=== PATIENT | male | born 1955 | race Caucasian/White ===

== ENCOUNTER 2016-03-19 12:55 | Emergency (ER) | payer OTHER ==
[2016-03-19] MEDS ORDERED: HYDROmorphone 1 MG/ML 1 ML SYRINGE IVP STA (13:26)
[2016-03-19] MEDS ORDERED: SODIUM CHLORIDE 0.9% 500 ML IV STA (13:26)
[2016-03-19] MEDS ORDERED: SODIUM CHLORIDE 0.9% 1,000 ML IV STA (13:26)
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
[2016-03-19 14:40] LABS: Appearance,Urine Clear (Clear); Bilirubin,Urine Negative (Negative); Glucose,Urine (UA) 4+ (Negative); Ketones,Urine Negative (Negative); Leukocyte Esterase,Urine Negative (Negative); Nitrite,Urine Negative (Negative); Protein,Urine Negative (Negative); Specific Gravity,Urine 1.029 (1.001-1.035); UA Billing (MACRO vs. MICRO) CHEM; Urobilinogen,Urine <2.0 mg/dL (<2.0)
[2016-03-19 15:11] LABS: Basophils # (A) 0.1 k/uL (0-0.2); Basophils % (A) 1 %; CH 31.3; Eosinophils # (A) 0.1 k/uL (0-0.7); Eosinophils % (A) 2 %; HCT 50.1 % (39.0-53.0); HDW 2.86; Luc # (Auto) 0.08; Luc % (Auto) 1; Lymphocytes # (A) 1.9 k/uL (1.0-4.8); Lymphocytes % (A) 22 %; MCH 29.8 pg (25.0-35.0); MCV 87.5 fL (80.0-100.0); Mean Platelet Volume 7.7; Monocytes # (A) 0.5 k/uL (0-1.0); Monocytes % (A) 6 %; Neutrophils # (A) 5.9 k/uL (1.3-7.7); Neutrophils % (A) 69 %; RBC 5.72 m/uL (4.30-5.90); RDW 12.9 % (11.5-15.5); WBC 8.5 k/uL (3.8-10.6); WBC (Perox) 8.23
[2016-03-19 15:20] LABS: ALT 55 U/L (21-72); AST 24 U/L (17-59); Alkaline Phosphatase 73 U/L (38-126); Amylase 32 U/L (30-110); Anion Gap 12 mmol/L; Blood Urea Nitrogen 12 mg/dL (9-20); Carbon Dioxide 26 mmol/L (22-30); Chloride 102 mmol/L (98-107); Glucose 301 mg/dL (74-99); Non-African American GFR(MDRD) >60 (>60 ml/min/1.73 sqM); Potassium 4.4 mmol/L (3.5-5.1); Sodium 140 mmol/L (137-145); Total Protein 7.5 g/dL (6.3-8.2)
--- NOTE | 2016-03-19 15:33 | XR ---
EXAMINATION TYPE: XR abdomen 2V DATE OF EXAM: 03/19/2016 3:14 PM COMPARISON: 08/18/2015 HISTORY: Abdominal pain TECHNIQUE: 2 views FINDINGS: Bowel gas pattern is normal. There is no sign of intestinal obstruction or pneumoperitoneum . Fecal pattern is normal. There are clips from cholecystectomy. There are no pathologic calcificatio ns over the kidneys. Lung bases are clear. There is no evidence of a mass. IMPRESSION: Nonacute abdomen.
[2016-03-19 15:51] LABS: Hepatitis B Surface Ag Index 0.05
[2016-03-19 15:57] LABS: Hepatitis B Core IgM Index 0.04
[2016-03-19 16:06] VITALS: BP 159/85; PULSE 89; RESP 18; TEMP 98
[2016-03-19 16:20] LABS: Hepatitis C Virus IgG Ab Reactive (Negative)
[2016-03-22 13:20] LABS: HCV Qualitative Result DETECTED (Not detected)
== END 2016-03-19 16:17 | disposition home or self-care (01) ==
LOC: EC 12:55
DX: N23 Unspecified renal colic (principal); R10.11 Right upper quadrant pain; R11.0 Nausea; J44.9 Chronic obstructive pulmonary disease, unspecified; E11.9 Type 2 diabetes mellitus without complications; K58.9 Irritable bowel syndrome, unspecified; Z87.442 Personal history of urinary calculi; Z87.891 Personal history of nicotine dependence; Z79.4 Long term (current) use of insulin; Z79.899 Other long term (current) drug therapy; Z90.49 Acquired absence of other specified parts of digestive tract; Z98.890 Other specified postprocedural states; Z96.0 Presence of urogenital implants
CPT/HCPCS: 99284; 96374; 96361 ×2; 36415; 87522; 80053; 80074; 82150; 83690; 85025; 81003; 87086; 74020; J1170; 87902

== ENCOUNTER 2016-04-23 04:15 | Emergency (ER) | payer OTHER ==
[2016-04-23 04:25] VITALS: TEMP 97.6
[2016-04-23] MEDS ORDERED: ORPHENADRINE 30 MG/ML 2 ML VIAL IVP STA (05:07)
[2016-04-23] MEDS ORDERED: SODIUM CHLORIDE 0.9% 500 ML IV STA (05:07)
[2016-04-23] MEDS ORDERED: KETOROLAC 30 MG/ML 1 ML VIAL IVP STA ×2 (05:07→06:00)
[2016-04-23] MEDS ORDERED: HYDROmorphone 1 MG/ML 1 ML SYRINGE IVP STA (05:08)
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
[2016-04-23] MEDS ORDERED: DEXAMETHASONE SOD PHOSPHATE 10 MG/ML 1 ML VIAL IV STA (06:00)
[2016-04-23 06:45] VITALS: BP 172/81; PULSE 80; RESP 16
== END 2016-04-23 06:44 | disposition home or self-care (01) ==
LOC: EC 04:15
DX: R51 Headache (principal); M62.830 Muscle spasm of back; M54.2 Cervicalgia; M25.511 Pain in right shoulder; J44.9 Chronic obstructive pulmonary disease, unspecified; K58.9 Irritable bowel syndrome, unspecified; E11.9 Type 2 diabetes mellitus without complications; Z87.891 Personal history of nicotine dependence; Z79.4 Long term (current) use of insulin; Z79.899 Other long term (current) drug therapy
CPT/HCPCS: 99283; 96374; 96375 ×3; 96376; 96361; J1100; J2360; J1885; J1170

== ENCOUNTER → 2016-05-10 | Outpatient (CLI) | payer OTHER ==
[2016-05-10 16:16] LABS: Bilirubin, Delta 0.3 mg/dL (0.0-0.2); Total Bilirubin 1.2 mg/dL (0.2-1.3); Total Protein 7.2 g/dL (6.3-8.2)
[2016-05-12 14:40] LABS: HCV Qualitative Result DETECTED (Not detected)
== END | disposition home or self-care (01) ==
LOC: LABWHC1 15:46
DX: B18.2 Chronic viral hepatitis C (principal)
CPT/HCPCS: 36415; 80076; 87522; 87902

== ENCOUNTER → 2016-08-04 | Outpatient (CLI) | payer OTHER ==
--- NOTE | 2016-08-04 13:49 | CT ---
EXAMINATION TYPE: CT abdomen pelvis wo con DATE OF EXAM: 08/04/2016 COMPARISON: 05/03/2015 HISTORY: Calculus of kidney CT DLP: 919 mGycm Automated exposure control for dose reduction was used. TECHNIQUE: Helical acquisition of images was performed from the lung bases through the pelvis. FINDINGS: LUNG BASES: No significant abnormality is appreciated. LIVER/GB: Changes of previous cholecystectomy noted.. PANCREAS: No significant abnormality is seen. SPLEEN: No significant abnormality is seen. ADRENALS: No significant abnormality is seen. KIDNEYS: Right kidney: There is a 1 cm hypodense mass indeterminate by noncontrast technique. A single calculu s on the right is noted. Punctate lower pole 1 mm right renal calculus Left kidney: There are 2 calculi noted on the left. There is a punctate 2 mm calculus upper pole and lower pole left kidney. No hydronephrosis bilaterally. Bladder calculi. URINARY BLADDER: No significant abnormality is seen. ADENOPATHY: None visualized. OSSEOUS STRUCTURES: Degenerative change of the spine noted. BOWEL: No significant abnormality is seen. OTHER: Aorta is ectatic measuring 2.7 cm above the bifurcation and appears retrospectively stable. At herosclerotic change of the vasculature noted. Fat-containing inguinal hernia the right noted. IMPRESSION: 1. Punctate nonobstructing bilateral renal calculi. 2. 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 3. Fat-containing right inguinal hernia. 4. Indeterminate right renal lesion by noncontrast technique and is stable from previous exam
== END ==
LOC: RADCTMAIN 12:59
PROVIDERS: ATTEND Urology
DX: N20.0 Calculus of kidney (principal); K40.90 Unilateral inguinal hernia, without obstruction or gangrene, not specified as recurrent; I77.819 Aortic ectasia, unspecified site
CPT/HCPCS: 74176

== ENCOUNTER → 2016-10-12 | Outpatient (CLI) | payer OTHER ==
[2016-10-12 16:58] LABS: Basophils # (A) 0.1 k/uL (0-0.2); Basophils % (A) 1 %; CH 32.6; CHCM 35.8; Eosinophils # (A) 0.1 k/uL (0-0.7); Eosinophils % (A) 2 %; HCT 50.1 % (39.0-53.0); HDW 2.72; HGB 16.9 gm/dL (13.0-17.5); Luc # (Auto) 0.11; Luc % (Auto) 1; Lymphocytes # (A) 1.7 k/uL (1.0-4.8); Lymphocytes % (A) 22 %; MCH 30.8 pg (25.0-35.0); MCHC 33.7 g/dL (31.0-37.0); MCV 91.4 fL (80.0-100.0); Monocytes # (A) 0.4 k/uL (0-1.0); Monocytes % (A) 5 %; Neutrophils # (A) 5.4 k/uL (1.3-7.7); Neutrophils % (A) 70 %; RBC 5.48 m/uL (4.30-5.90); RDW 14.1 % (11.5-15.5); WBC 7.8 k/uL (3.8-10.6); WBC (Perox) 6.91
[2016-10-12 17:07] LABS: Bilirubin, Delta 0.4 mg/dL (0.0-0.2); Total Bilirubin 0.8 mg/dL (0.2-1.3); Total Protein 7.1 g/dL (6.3-8.2)
[2016-10-13 15:23] LABS: Hepatits C Virus RNA, Quant <12 IU/mL (<12); LOG HCV IU/mL <1.08 (<1.08)
== END | disposition home or self-care (01) ==
LOC: LABWHC1 15:59
PROVIDERS: ATTEND Physician Assistant
DX: B18.2 Chronic viral hepatitis C (principal)
CPT/HCPCS: 36415; 80076; 85025; 87522

== ENCOUNTER → 2017-03-27 | Day surgery (SDC) | payer OTHER ==
[2017-03-22 15:27] VITALS: BMI 27.2
[~2017-03-27] MED LIST: BALANCED SALT IRRIG SOLN COMB2 15 ML IRRIG.SOLN IRRIGATION ONE; BUPIVACAINE (PF) 0.75% 5 ML, HYALURONIDASE, HUMAN RECOMB 150 UNIT, LIDOCAINE 2% (PF) 10... MISCELLANE ONE; DEXAMETHASONE SOD PHOSPHATE 10 MG/ML 1 ML VIAL IV ONE; EPINEPHrine (PF) 0.5 ML in BALANCED SALT IRRIG SOLN COMB2 500 ML IRRIGATION ONE; GENTAMICIN/PREDNISOL AC OPHTH OINT 3.5GM OPHTHALMIC ONE; HYALURONATE SODIUM INTRAOCULAR 1 EACH SYRINGE (10MG/ML) INTRAOCULA ONE; INSULIN ASPART 100 UNIT/ML 1 ML 10 ML VIAL SQ ONE; LACTATED RINGERS 1,000 ML IV ONE; LACTATED RINGERS 1,000 ML IV SCH; LIDOCAINE 1% 20 ML VIAL (10MG/ML) FOR IV START INTRADERMA PRN; ONDANSETRON 4 MG/2 ML VIAL IVP ONE; PROPOFOL 10 MG/ML 20 ML VIAL IV ONE; TIMOLOL 0.5% OPHTH DROPS 5 ML BTL OP ONE
[2017-03-27 08:27] VITALS: TEMP 98
[2017-03-27] MEDS: CYCLOPENTOLATE 1% OPHTH SOLN 2 ML BTL OP ONE ×3 (08:30→08:45)
[2017-03-27] MEDS: FLURBIPROFEN 0.03% OPHTH DROPS 2.5 ML BTL OP ONE ×3 (08:32→08:48)
[2017-03-27] MEDS: PHENYLEPHRINE 10% OPHTH DROPS 5 ML BTL OP ONE ×3 (08:34→08:51)
[2017-03-27 08:41] LABS: Glucose,Whole Blood 333 mg/dL (75-99)
--- NOTE | 2017-03-27 09:40 | P.OP ---
Date of Procedure: 03/27/17 Procedure(s) Performed: PREOPERATIVE DIAGNOSIS: Cataract, left eye. POSTOPERATIVE DIAGNOSIS: Cataract, left eye. OPERATION: Phacoemulsification cataract, left eye. DESCRIPTION OF PROCEDURE: The patient was taken to the preoperative holding area. Intravenous Propofol was given so as to bring about adequate sedation. The following mixture was given for local anesthesia: 5 mL of 2% lidocaine, 5 mL of 0.75% Marcaine, and 1 mL of Wydase. Approximately 4 mL was injected in the retrobulbar space of the surgical eye. Additional 1 mL was then directed to the temporal area of the surgical eye. This was performed to allow adequate neurological block of the facial muscles. The patient was revived and then taken into the operative room. The patient was prepped and draped in the usual sterile manner for the operative eye. A lid speculum was put into position. The conjunctiva was resected back from the limbus in the 12 o'clock position. Bleeding was controlled with electrocautery. A #69 blade was then used and a half-thickness scleral incision approximately 1-mm posterior to the limbus was made on bare sclera. This was shelved in the clear cornea using a crescent knife. Next a 15-degree blade was used to make a stab incision at the 3 o' clock position at the corneolimbal interface. Keratome blade was then used and the superior wound was extended into the anterior chamber. Viscoelastic was injected into the anterior chamber and to maintain its form. Next, a cystotome was used and a continuous anterior capsulotomy was made without difficulty. Hydrodissection using a blunt cannula and BSS was performed. Phaco probe was then employed and a groove extending from 12 to 6 o'clock in the lens was created. A Shane wand was used through the stab incision so as to perform a divide and conquer technique. Next an irrigation aspiration probe was utilized and any residual cortex was removed from the eye. Again, viscoelastic was injected into the anterior chamber. An Erasmo posterior chamber lens implant was placed in the cartridge and injected into the anterior chamber without difficulty. The SinEZChipey hook was utilized to spin the lens into position and this was again performed without any difficulty. The irrigation and aspiration probe was again employed and any residual viscoelastic was removed from the eye. Then BSS was injected into the limbal stab incision and the anterior chamber re-inflated. The conjunctiva was reapproximated using electrocautery. One drop of 0.25% Timoptic was placed over the corneal along with TobraDex ophthalmic ointment. Two sterile patches and a Alcantara eye shield were taped into position. The patient was transported to the recovery room in stable condition. Pathology: none sent Condition: stable Disposition: same day
[2017-03-27 09:57] LABS: Glucose,Whole Blood 312 mg/dL (75-99)
[2017-03-27 10:11] VITALS: BP 122/48; PULSE 72; RESP 16
== END | disposition home or self-care (01) ==
LOC: OR 08:07
PROVIDERS: ATTEND Ophthalmology
DX: H26.9 Unspecified cataract (principal); E11.36 Type 2 diabetes mellitus with diabetic cataract; Z79.4 Long term (current) use of insulin; J44.9 Chronic obstructive pulmonary disease, unspecified; Z87.891 Personal history of nicotine dependence; N40.0 Benign prostatic hyperplasia without lower urinary tract symptoms; Z79.891 Long term (current) use of opiate analgesic; Z79.899 Other long term (current) drug therapy; Z91.040 Latex allergy status
CPT/HCPCS: 66984; V2632; J3470; J2001; J0171; J2704

== ENCOUNTER 2017-05-08 05:53 | Day surgery (SDC) | payer OTHER ==
[2017-05-08] MEDS: PHENYLEPHRINE 10% OPHTH DROPS 5 ML BTL OP ONE ×3 (06:14→06:20)
[2017-05-08] MEDS ORDERED: LACTATED RINGERS 1,000 ML IV SCH (06:15)
[2017-05-08] MEDS ORDERED: LIDOCAINE 1% 20 ML VIAL (10MG/ML) FOR IV START INTRADERMA PRN (06:15)
[2017-05-08] MEDS ORDERED: ONDANSETRON 4 MG/2 ML VIAL IVP ONE (06:15)
[2017-05-08] MEDS: CYCLOPENTOLATE 1% OPHTH SOLN 2 ML BTL OP ONE ×3 (06:23→06:29)
[2017-05-08 06:32] VITALS: RESP 16; TEMP 97.2
[2017-05-08] MEDS: FLURBIPROFEN 0.03% OPHTH DROPS 2.5 ML BTL OP ONE ×3 (06:32→06:38)
[2017-05-08 06:52] LABS: Glucose,Whole Blood 222 mg/dL (75-99)
[2017-05-08] MEDS ORDERED: INSULIN ASPART 100 UNIT/ML 1 ML 10 ML VIAL SQ ONE (06:56)
[2017-05-08] MEDS ORDERED: PROPOFOL 10 MG/ML 20 ML VIAL IV ONE (07:50)
[2017-05-08] MEDS ORDERED: EPINEPHrine (PF) 0.5 ML in BALANCED SALT IRRIG SOLN COMB2 500 ML IRRIGATION ONE (07:55)
[2017-05-08] MEDS ORDERED: HYALURONATE SODIUM INTRAOCULAR 1 EACH SYRINGE (10MG/ML) INTRAOCULA ONE (08:09)
[2017-05-08] MEDS ORDERED: BALANCED SALT IRRIG SOLN COMB2 15 ML IRRIG.SOLN IRRIGATION ONE (08:09)
[2017-05-08] MEDS ORDERED: TETRACAINE 0.5% OPHTH (PF) DROPS 4 ML BTL RIGHT EYE ONE (08:11)
--- NOTE | 2017-05-08 08:27 | P.OP ---
Date of Procedure: 05/08/17 Procedure(s) Performed: PREOPERATIVE DIAGNOSIS: Cataract, right eye. POSTOPERATIVE DIAGNOSIS: Cataract, right eye. OPERATION: Phacoemulsification cataract, right eye. DESCRIPTION OF PROCEDURE: The patient was taken to the preoperative holding area. Intravenous Propofol was given so as to bring about adequate sedation. The following mixture was given for local anesthesia: 5 mL of 2% lidocaine, 5 mL of 0.75% Marcaine, and 1 mL of Wydase. Approximately 4 mL was injected in the retrobulbar space of the surgical eye. Additional 1 mL was then directed to the temporal area of the surgical eye. This was performed to allow adequate neurological block of the facial muscles. The patient was revived and then taken into the operative room. The patient was prepped and draped in the usual sterile manner for the operative eye. A lid speculum was put into position. The conjunctiva was resected back from the limbus in the 12 o'clock position. Bleeding was controlled with electrocautery. A #69 blade was then used and a half-thickness scleral incision approximately 1-mm posterior to the limbus was made on bare sclera. This was shelved in the clear cornea using a crescent knife. Next a 15-degree blade was used to make a stab incision at the 3 o' clock position at the corneolimbal interface. Keratome blade was then used and the superior wound was extended into the anterior chamber. Viscoelastic was injected into the anterior chamber and to maintain its form. Next, a cystotome was used and a continuous anterior capsulotomy was made without difficulty. Hydrodissection using a blunt cannula and BSS was performed. Phaco probe was then employed and a groove extending from 12 to 6 o'clock in the lens was created. A Shane wand was used through the stab incision so as to perform a divide and conquer technique. Next an irrigation aspiration probe was utilized and any residual cortex was removed from the eye. Again, viscoelastic was injected into the anterior chamber. An Eramso posterior chamber lens implant was placed in the cartridge and injected into the anterior chamber without difficulty. The SinFluidinfoey hook was utilized to spin the lens into position and this was again performed without any difficulty. The irrigation and aspiration probe was again employed and any residual viscoelastic was removed from the eye. Then BSS was injected into the limbal stab incision and the anterior chamber re-inflated. The conjunctiva was reapproximated using electrocautery. One drop of 0.25% Timoptic was placed over the corneal along with TobraDex ophthalmic ointment. Two sterile patches and a Alcantara eye shield were taped into position. The patient was transported to the recovery room in stable condition. Pathology: none sent Condition: stable Disposition: same day
[2017-05-08 08:33] LABS: Glucose,Whole Blood 204 mg/dL (75-99)
[2017-05-08 08:50] VITALS: BP 138/86; PULSE 64
[2017-05-08] MEDS ORDERED: BUPIVACAINE (PF) 0.75% 5 ML, HYALURONIDASE, HUMAN RECOMB 150 UNIT, LIDOCAINE 2% (PF) 10... MISCELLANE ONE ×3 (23:00)
[2017-05-08] MEDS ORDERED: TIMOLOL 0.5% OPHTH DROPS 5 ML BTL OP ONE (23:00)
[2017-05-08] MEDS ORDERED: GENTAMICIN/PREDNISOL AC OPHTH OINT 3.5GM OPHTHALMIC ONE (23:00)
== END 2017-05-08 09:00 | disposition home or self-care (01) ==
LOC: OR 05:53
PROVIDERS: ATTEND Ophthalmology
DX: E11.36 Type 2 diabetes mellitus with diabetic cataract (principal); Z79.4 Long term (current) use of insulin; Z79.899 Other long term (current) drug therapy; Z83.3 Family history of diabetes mellitus; Z82.49 Family history of ischemic heart disease and other diseases of the circulatory system; Z82.61 Family history of arthritis; Z88.5 Allergy status to narcotic agent; Z91.012 Allergy to eggs; Z91.040 Latex allergy status; Z87.891 Personal history of nicotine dependence; E78.5 Hyperlipidemia, unspecified; J44.9 Chronic obstructive pulmonary disease, unspecified; Z79.891 Long term (current) use of opiate analgesic; Z87.442 Personal history of urinary calculi
CPT/HCPCS: 66984; V2632; J3470; J2001; J0171; J2704

== ENCOUNTER → 2018-01-08 | Outpatient (CLI) | payer OTHER ==
--- NOTE | 2018-01-08 11:11 | CTL ---
EXAMINATION TYPE: CT Low Dose Lung DATE OF EXAM ORDERED: 01/08/2018 HISTORY: Long-term tobacco use. Lung cancer screening CT DLP: 96.[address] CTDI: 2.7 mGy Automated exposure control for dose reduction was used. SCREENING VISIT: Initial study COMPARISON: None TECHNIQUE: Low dose computed tomography scan was performed through the chest at 1 mm thick sections a nd reconstructed images in the coronal plane at [address] DIAGNOSTIC QUALITY: Satisfactory FINDINGS: LUNG NODULES: None. LUNGS: COPD: Severity: 1 Fibrosis: Severity: Focal linear scarring in the lingula near axial image 230 just anterior to the fi ssure. Lymph nodes: No greater than 1 cm. Other findings: No suspicious other findings seen. BILATERAL PLEURAL SPACE: Effusion: None Calcification: None Thickening: None Pneumothorax: None HEART: Heart Size: Normal Coronary calcification: Moderate Pericardial effusion: None OTHER FINDINGS: Upper abdomen: Visualized Liver is diffusely hypodense consistent with fatty infiltration Bony thorax: Moderate multilevel spurring in thoracic spine is seen with mild to moderate multilevel disc space narrowing Supraclavicular region: None Other: Ascending aorta measures up to 3.3 cm on axial image 129 IMPRESSION: No suspicious nodules identified FOLLOW UP CT CHEST RECOMMENDATION: Annual low-dose lung screening CT. Correlate clinically moderate c oronary artery calcification with additional coronary risk factors. CT LUNG RAD: Lung-Rad 1 Negative
== END ==
LOC: RADCTMAIN 07:55
PROVIDERS: ATTEND Family Medicine
DX: Z12.2 Encounter for screening for malignant neoplasm of respiratory organs (principal); Z87.891 Personal history of nicotine dependence

== ENCOUNTER → 2023-03-22 | Outpatient (CLI) | payer MEDICARE, OTHER ==
[2023-03-22 11:52] LABS: African American GFR (CKD) >90 (>60 ml/min/1.73 sqM); Blood Urea Nitrogen 21 mg/dL (9-20); Non-African American GFR(CKD) >90 (>60 ml/min/1.73 sqM)
--- NOTE | 2023-03-23 12:48 | CT ---
EXAMINATION TYPE: CT abdomen pelvis w con DATE OF EXAM: 03/22/2023 COMPARISON: 08/04/2016 INDICATION: Hernia DLP: 992.90 mGycm, Automated exposure control for dose reduction was used. CONTRAST: 100 ml mL of Isovue 300. Study performed with Oral Contrast TECHNIQUE: Axial images were obtained from above the diaphragm to the pubic rami in the axial plane a t 5 mm thick sections. Reconstructed images are reviewed on the computer in the coronal plane. FINDINGS: Limited CT sections are obtained the lung bases. The lung bases are clear. CT ABDOMEN: Liver: There is mild diffuse fatty infiltration to the liver. There is an approximately 5 cm isodense to slightly hypodense mass within the anterior right lower lobe liver. This has some contour changes on the anterior liver border. In retrospect, this contour change may have been present previously martínez ggesting instability. Additional workup however is recommended of the liver. Consider ultrasound and/ or MRI with contrast. Hepatomegaly is present at 22.9 cm. Normal <15.5 cm. Spleen: Normal Pancreas: Normal Adrenal glands: The adrenal glands are normal. Gallbladder: Surgically absent Kidneys: No masses are evident. No hydronephrosis is present. Cortical renal cysts on the right mid kidney. Delayed images were obtained through the kidneys, which remain unremarkable. Aorta: Vascular calcification is within the aorta. There is no abdominal aortic fusiform prominence measuring 3.4 cm in greatest AP dimension. This begins in the infrarenal region and terminates above the bifurcation. Vascular calcifications within the iliac vessels. Inferior vena cava: Normal. CT PELVIS: Loops of bowel within the abdomen and pelvis are normal. There are loops of bowel which are incom pletely distended or lack oral contrast limiting their evaluation. Appendix: Normal as visualized. Urinary bladder: Normal. Genitourinary structures: Prostate is normal. Osseous structures: No suspicious lytic or sclerotic lesions. Degenerative disc changes are in the lo wer lumbar spine. Some facet degenerative changes are present. IMPRESSION: 1. Liver mass which may have been present previously in 2017. This may be a large hemangioma. Ultra sound and/or contrast MRI recommended for additional workup. 2. Hepatomegaly. 3. Fusiform abdominal aortic prominence mid abdominal aorta measuring 3.4 cm. This was present previo usly and is enlarged over the interval.
== END | disposition home or self-care (01) ==
LOC: RADCTMAIN 11:04
PROVIDERS: ATTEND Surgery
DX: K76.9 Liver disease, unspecified (principal); R16.0 Hepatomegaly, not elsewhere classified; K40.90 Unilateral inguinal hernia, without obstruction or gangrene, not specified as recurrent
CPT/HCPCS: 82565; 84520; 74177; 36415; Q9967

== ENCOUNTER 2023-04-24 06:44 | Day surgery (SDC) | payer MEDICARE, OTHER ==
[2023-04-20 17:09] VITALS: BMI 24.5
[~2023-04-24 06:44] MED LIST changes: -BALANCED SALT IRRIG SOLN COMB2 15 ML IRRIG.SOLN IRRIGATION ONE; -BUPIVACAINE (PF) 0.75% 5 ML, HYALURONIDASE, HUMAN RECOMB 150 UNIT, LIDOCAINE 2% (PF) 10... MISCELLANE ONE; -DEXAMETHASONE SOD PHOSPHATE 10 MG/ML 1 ML VIAL IV ONE; +DEXAMETHASONE SOD PHOSPHATE 4 MG/ML 1 ML VIAL IV ONE; -EPINEPHrine (PF) 0.5 ML in BALANCED SALT IRRIG SOLN COMB2 500 ML IRRIGATION ONE; -GENTAMICIN/PREDNISOL AC OPHTH OINT 3.5GM OPHTHALMIC ONE; -HYALURONATE SODIUM INTRAOCULAR 1 EACH SYRINGE (10MG/ML) INTRAOCULA ONE; -INSULIN ASPART 100 UNIT/ML 1 ML 10 ML VIAL SQ ONE; -LACTATED RINGERS 1,000 ML IV ONE; -LACTATED RINGERS 1,000 ML IV SCH; +LIDOCAINE 1% (10MG/ML) FOR IV START INTRADERMA PRN; -LIDOCAINE 1% 20 ML VIAL (10MG/ML) FOR IV START INTRADERMA PRN; -ONDANSETRON 4 MG/2 ML VIAL IVP ONE; -PROPOFOL 10 MG/ML 20 ML VIAL IV ONE; +Pre Op ABX Message 1 EACH MISC MISCELLANE ONE; -TIMOLOL 0.5% OPHTH DROPS 5 ML BTL OP ONE
[2023-04-24] MEDS ORDERED: HYDROmorphone 0.5 MG/0.5 ML SYRINGE IVP PRN (07:00)
[2023-04-24] MEDS ORDERED: MIDAZOLAM 2 MG/2 ML VIAL IV PRN (07:00)
[2023-04-24 08:14] LABS: Glucose,Whole Blood 254 mg/dL (70-110)
[2023-04-24 08:22] LABS: Basophils % (A) 0 %; Eosinophils # (A) 0.4 k/uL (0-0.7); Eosinophils % (A) 4 %; HCT 45.8 % (39.0-53.0); HGB 16.2 gm/dL (13.0-17.5); Lymphocytes # (A) 1.6 k/uL (1.0-4.8); Lymphocytes % (A) 18 %; MCH 31.6 pg (25.0-35.0); MCHC 35.3 g/dL (31.0-37.0); MCV 89.6 fL (80.0-100.0); Mean Platelet Volume 7.9; Monocytes # (A) 0.5 k/uL (0-1.0); Monocytes % (A) 5 %; Neutrophils # (A) 6.6 k/uL (1.3-7.7); Neutrophils % (A) 71 %; Platelet Count 187 k/uL (150-450); RBC 5.12 m/uL (4.30-5.90); RDW 12.8 % (11.5-15.5); WBC 9.2 k/uL (3.8-10.6)
[2023-04-24] MEDS: LACTATED RINGERS 1,000 ML IV SCH (08:33)
[2023-04-24] MEDS: ACETAMINOPHEN TAB 500 MG TAB PO PRN (08:33)
[2023-04-24] MEDS: HEPARIN SODIUM,PORCINE 5,000 UNIT/ML 1 ML VIAL SQ PRN (08:34)
[2023-04-24] MEDS: ONDANSETRON 4 MG/2 ML VIAL IVP ONE (08:34)
[2023-04-24] MEDS: INSULIN ASPART (NovoLOG) 100 UNIT/ML VIAL SQ ONE ×2 (08:35→09:58)
[2023-04-24 08:36] LABS: African American GFR (CKD) >90 (>60 ml/min/1.73 sqM); Anion Gap 7 mmol/L; Blood Urea Nitrogen 19 mg/dL (9-20); Calcium 9.7 mg/dL (8.4-10.2); Carbon Dioxide 22 mmol/L (22-30); Chloride 107 mmol/L (98-107); Glucose 237 mg/dL (74-99); Non-African American GFR(CKD) >90 (>60 ml/min/1.73 sqM); Sodium 136 mmol/L (137-145)
[2023-04-24] MEDS ORDERED: ESMOLOL 100 MG/10 ML VIAL ONE (08:48)
[2023-04-24] MEDS ORDERED: ROCURONIUM 10 MG/ML (5 ML VIAL) IV ONE (08:48)
[2023-04-24] MEDS ORDERED: LABETALOL 5 MG/ML VIAL MDV ONE (08:48)
[2023-04-24] MEDS ORDERED: SUCCINYLCHOLINE CHLORIDE 200 MG/10 ML VIAL IV ONE (08:48)
[2023-04-24] MEDS ORDERED: KETOROLAC 15 MG/ML 1 ML VIAL ONE (08:48)
[2023-04-24] MEDS ORDERED: GLYCOPYRROLATE 0.2 MG/ML 2 ML VIAL ONE (08:48)
[2023-04-24] MEDS ORDERED: ceFAZolin 1 GM/50 ML BAG (PMX) ONE (08:48)
[2023-04-24] MEDS ORDERED: NEOSTIGMINE 1 MG/ML 10 ML VIAL ONE (08:48)
[2023-04-24] MEDS ORDERED: fentaNYL (PF) 50 MCG/ML 2 ML AMP ONE (08:48)
[2023-04-24] MEDS ORDERED: MIDAZOLAM 2 MG/2 ML VIAL ONE (08:48)
[2023-04-24] MEDS: FAMOTIDINE 20 MG/2 ML VIAL IVP ONE (08:48)
[2023-04-24] MEDS ORDERED: PROPOFOL 10 MG/ML 20 ML VIAL IV ONE (08:48)
[2023-04-24 08:55] LABS: Potassium 4.7 mmol/L (3.5-5.1)
[2023-04-24] MEDS: BUPIVACAINE (PF) 0.25% 30 ML VIAL SQ ONE (09:11)
--- NOTE | 2023-04-24 09:30 | P.OP ---
Date of Procedure: 04/24/23 Preoperative Diagnosis: Adhesions Postoperative Diagnosis: Adhesions Procedure(s) Performed: Laparoscopic lysis of adhesions Transversus abdominis plane block Anesthesia: IVAN Surgeon: Kevin Alaniz Estimated Blood Loss (ml): 5 Pathology: none sent Condition: stable Disposition: PACU Description of Procedure: The patient's placed on the operative table in supine position. He received general endotracheal tube procedure present was prepped and draped in sterile fashion. The skin was anesthetized with 1% local Xylocaine. Then using a 11 blade a skin incision was made at the umbilicus. Using a pair of Caty clamps the umbilicus was grasped with the Veress needle was positioned into the perineal cavity. Position of the Veress needle confirmed with positive drop test. After adequate insufflation a 5 mm trochars placed throughout cavity. Then the laparoscope was placed. Cavity. Patient's previous history of bilateral inguinal hernia repair. The patient's placed in Trendelenburg. And then there were adhesions noted between the small bowel and the abdominal wall in the area of the inguinal hernia repairs. The adhesions were lysed with sharp dissection. A portion of small bowel was tethered by the adhesion in the right lower quadrant. This was freed. There were no other adhesions seen. This point the trochars withdrawn. Skin was closed interrupted 3-0 Monocryl suture. Dermabond dressing applied. Patient tolerated the procedure well. She was sent to recovery in stable condition.
[2023-04-24 09:48] VITALS: TEMP 96.8
[2023-04-24 09:54] LABS: Glucose,Whole Blood 232 mg/dL (70-110)
[2023-04-24 10:23] VITALS: RESP 18
[2023-04-24] MEDS ORDERED: ONDANSETRON 4 MG/2 ML VIAL ONE (10:41)
[2023-04-24] MEDS: LACTATED RINGERS 1,000 ML IV ONE (10:45)
[2023-04-24 11:04] LABS: Glucose,Whole Blood 225 mg/dL (70-110)
[2023-04-24 12:06] VITALS: BP 150/78; PULSE 67
== END 2023-04-24 11:58 | disposition home or self-care (01) ==
LOC: OR 06:44
PROVIDERS: ATTEND Surgery
DX: K66.0 Peritoneal adhesions (postprocedural) (postinfection) (principal); I10 Essential (primary) hypertension; E78.5 Hyperlipidemia, unspecified; J44.9 Chronic obstructive pulmonary disease, unspecified; E11.9 Type 2 diabetes mellitus without complications; F43.10 Post-traumatic stress disorder, unspecified; K21.9 Gastro-esophageal reflux disease without esophagitis; Z87.891 Personal history of nicotine dependence; Z90.49 Acquired absence of other specified parts of digestive tract; Z79.899 Other long term (current) drug therapy; Z98.890 Other specified postprocedural states
CPT/HCPCS: 80048; 85025; 44180; 64486; J2250; J0330; J1644; J2710; J2405; J3010; J3490; J0690; J1885; J2704; J0665; J1920; J1805

== ENCOUNTER 2023-08-16 08:03 | Day surgery (SDC) | payer MEDICARE, OTHER ==
[~2023-08-16 08:03] MED LIST changes: -DEXAMETHASONE SOD PHOSPHATE 4 MG/ML 1 ML VIAL IV ONE; -Pre Op ABX Message 1 EACH MISC MISCELLANE ONE
[2023-08-16 08:26] VITALS: TEMP 97.6
[2023-08-16] MEDS: IV FLUID CONTINUATION 1,000 ML IV ONE (08:28)
[2023-08-16 08:36] LABS: Glucose,Whole Blood 236 mg/dL (70-110)
[2023-08-16] MEDS: LACTATED RINGERS 1,000 ML IV SCH (08:36)
[2023-08-16] MEDS: INSULIN ASPART (NovoLOG) 100 UNIT/ML VIAL SQ ONE (08:40)
[2023-08-16] MEDS ORDERED: PROPOFOL 10 MG/ML 20 ML VIAL IV ONE (09:22)
--- NOTE | 2023-08-16 09:28 | P.GSHP ---
History of Present Illness H&P Date: 08/16/23 Chief Complaint: history of colon polyps is a 68-year-old male presents today for colonoscopy. Patient appears history of colon polyps. Past Medical History Past Medical History: COPD, Diabetes Mellitus, Hypertension, Liver Disease, M usculoskeletal Disorder, Osteoarthritis (OA), Skin Disorder Additional Past Medical History / Comment(s): hx kidney stones, . Hep. C-took tx. & now remission, IBS, 2 spots on liver-dr monitoring, PSORIASIS- legs. neuropathy to feet. History of Any Multi-Drug Resistant Organisms: None Reported Past Surgical History: Cholecystectomy, Hernia Repair, Orthopedic Surgery Additional Past Surgical History / Comment(s): lithotripsy LEFT URETERAL STENT., rotator cuff repair left, BILAT CATARACTS REMOVED WITH LENS IMPLANTS, COLONOSCOPY, Past Anesthesia/Blood Transfusion Reactions: No Reported Reaction Smoking Status: Former smoker - Past Family History Father Additional Family Medical History / Comment(s): AORTIC ANEUERYSM Mother Family Medical History: Cancer, Coronary Artery Disease (CAD) Additional Family Medical History / Comment(s): CABG Sister(s) Family Medical History: Coronary Artery Disease (CAD) Additional Family Medical History / Comment(s): CARDIAC STENTS. Medications and Allergies Home Medications Medication Instructions Recorded Confirmed Type Hyoscyamine Sulfate [Levbid] 0.375 mg PO DAILY PRN 05/01/15 08/16/23 History Insulin Aspart [NovoLOG] 5 units SQ TID-W/MEALS PRN 04/20/23 08/16/23 History Losartan [Cozaar] 25 mg PO DAILY 04/20/23 08/16/23 History oxyCODONE-APAP 10-325MG [Percocet 1 tab PO Q8HR PRN 04/20/23 08/16/23 History 10-325 mg] Unk Balance Of Nature Vit 1 tab PO DAILY 08/14/23 08/16/23 History Allergies Allergy/AdvReac Type Severity Reaction Status Date / Time No Known Allergies Allergy Verified 08/16/23 08:23 Surgical - Exam Vital Signs Temp Pulse Resp BP Pulse Ox 97.6 F 80 16 146/81 98 08/16/23 08:25 08/16/23 08:25 08/16/23 08:25 08/16/23 08:25 08/16/23 08:25 - General well developed, well nourished, no distress - Eyes PERRL - ENT normal pinna - Neck no masses - Respiratory normal expansion - Cardiovascular Rhythm: regular - Abdomen Abdomen: soft, non tender Results - Labs Abnormal Lab Results - Last 24 Hours (Table) 08/16/23 Range/Units 08:34 POC Glucose (mg/dL) 236 H (70-110) mg/dL Assessment and Plan Assessment: sure colon polyps. We'll perform colonoscopy.
--- NOTE | 2023-08-16 09:46 | P.OP ---
Date of Procedure: 08/16/23 Preoperative Diagnosis: history of colon polyps Postoperative Diagnosis: diverticulosis Procedure(s) Performed: colonoscopy Anesthesia: MAC Surgeon: Kevin Alaniz Pathology: none sent Disposition: PACU Description of Procedure: the patient's placed on the endoscopy table in the lateral position. He received IV sedation. The digital rectal exam was performed. This revealed no abnormalities. Flexible colonoscope was then placed patient anus and passed throughout the entire colon. Ileocecal valve was visualized. The cecum, ascending and transverse colon appeared normal. The descendingand sigmoid there was mild diverticular changes. Scope summer back the rectum this appeared normal. Scope withdrawn for patient.
[2023-08-16] MEDS: ONDANSETRON 4 MG/2 ML VIAL IVP ONE (10:30)
[2023-08-16] MEDS: KETOROLAC 15 MG/ML 1 ML VIAL IVP ONE (10:31)
[2023-08-16 10:38] LABS: Glucose,Whole Blood 203 mg/dL (70-110)
[2023-08-16 11:04] VITALS: BP 172/90; PULSE 82; RESP 16
== END 2023-08-16 11:01 | disposition home or self-care (01) ==
LOC: ORWHC2ENDO 08:03
PROVIDERS: ATTEND Surgery
DX: Z12.11 Encounter for screening for malignant neoplasm of colon (principal); I10 Essential (primary) hypertension; J44.9 Chronic obstructive pulmonary disease, unspecified; K57.30 Diverticulosis of large intestine without perforation or abscess without bleeding; M19.90 Unspecified osteoarthritis, unspecified site; Z87.442 Personal history of urinary calculi; Z87.891 Personal history of nicotine dependence; Z90.49 Acquired absence of other specified parts of digestive tract; Z98.890 Other specified postprocedural states; Z86.010 Personal history of colon polyps; Z79.899 Other long term (current) drug therapy
CPT/HCPCS: J2405; J1885; J2704; G0105